=== PATIENT | female | born 1960 | race Caucasian/White ===

== ENCOUNTER → 2021-09-09 16:30 | Outpatient (CLI) | payer OTHER, SELFPAY | PROVIDERS: Visit Provider Obstetrics & Gynecology | DX: Z11.3 Encounter for screening for infections with a predominantly sexual mode of transmission (principal); N76.89 Other specified inflammation of vagina and vulva ==

== ENCOUNTER 2022-10-19 09:25 | Emergency (ER) | payer OTHER, SELFPAY ==
[2022-10-19 09:27] VITALS: BP 147/85; PULSE 73; RESP 16; TEMP 36.4; O2SAT 100; BMI 24.2
--- NOTE | 2022-10-19 09:44 | RAD_ITS ---
STUDY: X-RAY - LEFT WRIST REASON FOR EXAM: Female, 62 years old. Left wrist pain following a fall. TECHNIQUE: 3 view(s) of the wrist were obtained. COMPARISON: None. FINDINGS: Normal visualized distal radius and ulna. Normal radiocarpal articulation. Normal distal radioulnar articulation. Avulsion fracture of the triquetrum. Normal carpal articulations. Normal carpometacarpal articulation of the thumb. Normal second through fifth carpometacarpal articulations. Normal visualized metacarpal bones. Dorsal soft tissue swelling. RAD/Wrist min 3 Views IMPRESSION: Avulsion fracture of the triquetrum with evidence of overlying soft tissue swelling. Electronically Signed: Anshul Inman MD at 10:34 EST ,
--- NOTE | 2022-10-19 09:50 | EX.ED.UPPERE ---
HPI History of Present Illness HPI Narrative: 62-year-old female fell last night slipped on ice injuring her left wrist. She is right-hand dominant. She has had a prior fracture wrist 20 or 30 years ago. It did not need surgery at that time. Chief Complaint: Upper Extremity Injury Informant: patient Occured/Mechanism Mechanism/Context: Yes injury and Yes blunt trauma Onset/Context/Timing Onset: Yesterday Timing: Continuous Quality of Pain: Sharp and Stabbing Current Severity: Moderate Maximum Severity: Moderate Associated Symptoms Associated Symptoms: Negative for Parasthesia, Weakness or Loss of Funtion Narrative Narrative: 62-year-old female slipped on ice last night in [place] fell injuring her left wrist. No LOC. Prior similar symptoms: Yes Recent Illness/Hospitalization: No PFSH PFSH Medical History no medical history Allergy/AdvReac Type Severity Reaction Status Date / Time No Known Allergies Allergy Verified 10/19/22 09:28 Family History no significant family his Surgical History no surgical history Social History Smoking Status: Current every day smoker tobacco type: cigarettes ROS ROS ED ROS Narrative Denies recent illness. Review of Systems ROS Unobtainable: Denies due to encephalopathy Constitutional Constitutional ED: Denies chills or fever(s) Eyes Eyes: Denies blurry vision ENT ENT ED: Denies ear pain Cardiovascular Cardiovascular: Denies chest pain Respiratory/Chest Respiratory/Chest: Denies cough or dyspnea Gastrointestinal Gastrointestinal: Denies abdominal pain Genitourinary Genitourinary ED: Denies dysuria or hematuria Musculoskeletal Musculoskeletal: Denies back pain Integumentary Denies abscess or Abrasions Neurologic Neurologic: Denies headache(s) Psychiatric Psychiatric: Denies anxiety Endocrine Endocrinology: Denies cold intolerance Hematologic/Lymphatic Hematologic/Lymphatic: Denies easy bleeding or easy bruising Allergic/Immunologic Allergic/Immunologic ED: Denies mouth swelling or tongue swelling EXAM Physical Exam Narrative Exam Narrative: 62-year-old female no acute distress. Vital signs stable afebrile. H EENT exam pupils round reactive light. No signs of facial trauma. No laceration or significant hematoma to her scalp. Mild tenderness left posterior scalp but no significant swelling. C-spine nontender full range of motion. Trachea midline. Back nontender. Spine nontender. No signs of trauma to the back. Lungs are clear equal symmetrical bilaterally. Chest wall is nontender. Ribs are nontender. Heart regular rate and rhythm rate about 70 no murmur. Abdomen soft nontender. Pelvic girdle intact. Moving all 4 extremities. Her left wrist is swollen and tender consistent with a wrist fracture. Normal radial pulse. She is able to wiggle her fingers. Normal touch sensation and cap refill. Left proximal forearm elbow upper arm and shoulder are nontender. Normal range of motion. Right upper extremity nontender normal range of motion and bilingual office assistant strength. Both lower extremities are nontender. Normal range of motion. Neurologically she is awake and alert with no focal motor deficits. Const Vital Signs: 10/19/22 09:27 Temperature 97.6 F L Temperature Source Temporal Pulse Rate 73 Respiratory Rate 16 Blood Pressure 147/85 H Blood Pressure Mean 105 Pulse Ox 100 Oxygen Delivery Method Room Air Positive well nourished and well developed; Negative for obese, cachectic, contractures or unkempt General Appearance ED: well developed and NAD; Negative for unkempt, cachectic, contractures, cyanotic or diaphoretic Nutritional Appearance: Negative for cachectic or obese HEENT Reports moist mucous membranes HEENT Narrative: Left posterior scalp tenderness. No Sinay hematoma. No laceration normocephalic, trauma and tenderness; Negative for atraumatic Eyes PERRL and EOMs intact bilaterally General Eye ED: Negative for other Neck full ROM and supple General: Negative for tenderness Lymph Lymphatic: Negative for other Chest Wall inspection of chest normal and palpation of chest normal Chest: Negative for other Resp normal respiratory effort and clear to auscultation bilaterally Effort and Inspection: Negative for pain with movement Auscultation: Negative for rales, rhonchi or wheezes Cardio regular rate, regular rhythm, S1 normal heart sound, S2 normal heart sound and no murmurs Rate: Negative for bradycardia or tachycardic Rhythm: Negative for abnormal rhythm GI non-tender, non-distended and no masses Inspection: Negative for abdominal distention Auscultation: normoactive bowel sounds Palpation: soft; Negative for tender or guarding Bladder / Kidney Exam: No other Back/Spine no CVA tenderness General Back: Negative for CVA tenderness Cervical Spine: Negative for cervical spine tenderness Thoracic Spine / Upper Back: Negative for thoracic spinal tenderness Lumbar Spine / Lower Back: Negative for lumbar spinal tenderness Extremity normal to inspection and full ROM Extremity Narrative: Except left wrist tender, swollen decreased range of motion consistent with a left wrist fracture. Neuro oriented x3, CN's II-XII intact bilaterally, moves all extremities, no focal motor deficits and no sensory deficits noted Sensorium / Orientation: alert, oriented to person, oriented to place and oriented to time; Negative for orientation impaired, lethargic or stuporous Motor Exam: strength 5/5 throughout Psych mental status grossly normal Appearance: Negative for unkempt Attitude: No agitated Mood & Affect: Negative for depressed, anxious or tearful Skin General Skin Exam: Negative for petechiae Lesions: no lesions Rashes: no rashes Trauma: no lacerations or abrasions; Negative for abrasion or laceration MDM MDM MDM Narrative Medical decision making narrative: 62-year-old slipped and fell on the ice last night clinically has not fractured wrist. X-ray will be obtained. To be given ibuprofen for pain she did not want a narcotic pain pill. I suspect this is fractured and will need splinted. Repeat exam patient doing well at 11:20 AM. I went over her x-rays with her and explained to her the triquetrium fracture. She was placed in a well-padded, Ortho-Glass AP splint that I fabricated. She tolerated that well. She will be discharged home with orthopedic follow-up with Dr. David Jimenes. Radiography Diagnostic Testing: Left wrist x-ray, 3 views, interpreted by myself and radiologist shows a posterior triquetrium fracture of the carpal bones of the wrist. The distal radius and ulna are unremarkable on this film. I did go over the x-rays with the patient. Procedures Upper Extremity Splints Upper Extremity Splint: Orthoglass and Sling Splint Fabrication: Fabricated Location: Left Discharge Plan Triage Chief Complaint: Upper Extremity Injury ED Provider: Zoltan Browning Dx/Rx/DC Orders Clinical Impression: Fall, Closed fracture of left carpal bone Instructions: ED Fracture, Wrist, General Primary Care Provider: Joaquina Joyner NP Referrals: David Jimenes MD [Med Staff - Active Staff] - As soon as possible Joaquina Joyner NP, [employer] [Primary Care Provider] - Activity Restrictions/Additional Instructions: Broken bone in your left wrist called the triquetrium. Ice and elevate to decrease pain and swelling. Motrin and Tylenol for pain and swelling. Call the orthopedic doctors office, Dr. David Jimenes, of [facility] to be seen in follow-up. Keep the splint dry and clean. Disposition Disposition: Home, Self Care
[2022-10-19] MEDS: Ibuprofen 600 MG Tablet PO (10:27)
== END 2022-10-19 11:50 | disposition home or self-care (01) ==
PROVIDERS: Emergency Provider Emergency Medicine; PCP Nurse Practitioner Family; Visit Provider Emergency Medicine
DX: S62.115A Nondisplaced fracture of triquetrum [cuneiform] bone, left wrist, initial encounter for closed fracture (principal); W00.0XXA Fall on same level due to ice and snow, initial encounter; F17.210 Nicotine dependence, cigarettes, uncomplicated
CPT/HCPCS: 29126; 29125; 73110; 99283

== ENCOUNTER → 2023-01-07 | Outpatient (CLI) | payer OTHER, SELFPAY ==
--- NOTE | 2023-01-07 07:18 | BI_ITS ---
MAMMOGRAPHY - BILATERAL SCREENING 3-D TOMOSYNTHESIS REASON FOR EXAM: Female, 62 years old. Routine screening PERTINENT HISTORY: No significant family history. TECHNIQUE: 2-D mammograms and 3-D Tomosynthesis of the breast (s) were performed. CAD was performed. COMPARISON: 2019 FINDINGS: The breast composition is heterogeneously dense that can obscure small breast masses. Scattered benign calcifications are seen. No dense spiculated masses or suspicious microcalcifications are identified. No architectural distortion is identified. There is no skin thickening or retraction. There has been no significant change since the prior study. BI/SCRN MAMM (CAD)W/KWAME BILAT IMPRESSION: No mammographic signs of malignancy. Routine yearly mammograms recommended. ASSESSMENT CATEGORY: BIRADS Category 2: Benign. A letter regarding these results will be sent to the patient by the facility within 30 days. FOLLOW UP RECOMMENDATION: Yearly follow up mammogram recommended. (A) Approximately 10% of breast cancers are not detected by mammography. A normal mammogram should not delay biopsy of a clinically suspicious abnormality. Electronically Signed: Sushil Boyce MD at 8:08 EDT ,
== END | disposition home or self-care (01) ==
LOC: OPBD 07:16
PROVIDERS: PCP Nurse Practitioner Family; Referring Provider Student in an Organized Health Care Education/Training Program; Visit Provider Student in an Organized Health Care Education/Training Program
DX: Z12.31 Encounter for screening mammogram for malignant neoplasm of breast (principal)
CPT/HCPCS: 77063; 77067

== ENCOUNTER 2023-03-31 07:58 | Day surgery (SDC) | payer OTHER, SELFPAY ==
[2023-03-31] VITALS (7 sets, daily range): BP systolic 83–122; BP diastolic 53–79; PULSE 50–60; RESP 16–18; TEMP 36.1–36.5; O2SAT 95–99; BMI 21.9
[2023-03-31] MEDS: Lactated Ringers 1,000 ML 15 ML IV (08:29)
--- NOTE | 2023-03-31 08:50 | HP.PCM_ITS ---
[facility] - General General Date of Admission: 03/31/23 Date of Service: 03/31/23 Chief Complaint: Screening colonoscopy HPI Narrative PETRA GARCIA, is a 62 F who presents today for screening colonoscopy. She had a colonoscopy approximately 12 years ago. The colonoscopy was normal. She does not have any problems with the bowels. She does not have any nausea, vomiting or diarrhea. She denies any blood per rectum. Overall she is in very good health. [facility] Medical History (Updated 03/30/23 @ 14:23 by Bianca Ledesma) Cancer Dermatofibrosarcoma Heartburn High cholesterol History of stress test Malignant melanoma Non-smoker Wears glasses Home Medications sertraline 25 mg tablet 12.5 mg PO DAILY 01/05/23 [History Last Taken Unknown] simvastatin 10 mg tablet 40 mg PO DAILY 01/05/23 [History Last Taken Unknown] Allergy/AdvReac Type Severity Reaction Status Date / Time No Known Allergies Allergy Verified 03/30/23 14:14 Surgical History History of colonoscopy Social History (Updated 01/05/23 @ 10:50 by Padmini Hernandez) current occupational status: employed Smoking Status: Never smoker ROS Review of Systems ROS Unobtainable: other Constitutional Constitutional: Denies fatigue, fever(s), poor appetite, weight gain or weight loss ENT HEENT: Denies mouth lesions Cardiovascular Cardiovascular: Denies abdominal bloating, abdominal edema or abdominal pain Respiratory/Chest Respiratory/Chest: Denies change in mental status, change in phlegm color, chest congestion or chest tightness Gastrointestinal Gastrointestinal: Denies belching, bloating, change in bowel habits, change in stool character, chewing difficulty, coffee ground emesis, constipation, cramping, diarrhea, dyspepsia, dysphagia, early satiety, excessive flatus, fecal incontinence, heartburn, hematemesis, hematochezia, hemorrhoids, loose stools, melena, nausea, odynophagia, rectal bleeding, tenesmus, vomiting or weight changes Genitourinary Genitourinary: Denies abdominal discomfort, burning urination or itching Musculoskeletal Musculoskeletal: Reports as per HPI; Denies muscle weakness or myalgias Integumentary Integumentary: Denies jaundice Neurologic Neurologic: Denies lack of coordination or weakness Psychiatric Psychiatric: Denies confusion, depression, memory loss, mood swings, paranoia or suicidal ideation Endocrine Endocrinology: Denies systems reviewed and no addt'l complaints, except as documented Hematologic/Lymphatic Hematologic/Lymphatic: Denies anemia, easy bleeding, easy bruising or lymphadenopathy Allergic/Immunologic Allergic/Immunologic: Denies systems reviewed and no addt'l complaints, except as documented Vital Signs Vital Signs Vital Signs: 03/31/23 08:30 03/31/23 08:30 Temperature 97.7 F L Temperature Source Temporal Pulse Rate 60 Respiratory Rate 18 Respiratory Pattern Normal Blood Pressure 122/79 H Blood Pressure Mean 93 Blood Pressure Source Monitor Blood Pressure Position Semi-Fowlers Blood Pressure Location Right Arm Pulse Ox 96 Oxygen Delivery Method Room Air Weight Weight: 136 lb 3.2 oz Body Mass Index (BMI) 21.9 Physical Exam Const alert, oriented x3, no apparent distress, healthy appearing and well nourished General Appearance: cooperative, comfortable, well kempt and well developed Orientation / Consciousness: awake and oriented to person HEENT Head and Scalp: normocephalic and atraumatic Face and Sinus: normal facial exam Mouth: oral and palatal mucosa normal Eyes General Eye: normal appearance of both eyes Neck full ROM Lymph Lymphatic: no lymphadenopathy noted Chest inspection of chest normal Resp normal respiratory effort and no use of accessory muscles Cardio regular rate and regular rhythm GI normal to inspection, nondistended, normoactive bowel sounds, soft to palpation, non-tender, non-distended and no masses Auscultation: normoactive bowel sounds Palpation: soft Percussion: normal to percussion Rectal Exam: visual inspection normal and normal sphincter tone no CVA tenderness Back/Spine no CVA tenderness and normal ROM Extremity normal to inspection Peripheral Pulses: Yes pulses 2+ throughout Skin no rashes or lesions noted General Skin Exam: no breakdown, elasticity normal and turgor normal Neuro oriented x3 Motor Exam: strength 5/5 throughout Psych mental status grossly normal Appearance: grossly normal Attitude: calm Activity / Motor Behavior: appropriate eye contact Speech: normal speech Thought Process: normal thought process Thought Content: normal thought content Attention / Concentration: attention grossly intact Memory / Cognition: memory grossly intact Insight: insight good Judgement: judgement good Assessment & Plan Assessment/Plan (1) Encounter for screening for malignant neoplasm of colon: PLAN: She was explained alternatives, risk, benefits including not withstanding bleeding, infection, sepsis, perforation, need for emergent surgery . She will have an ASA of 2.
--- NOTE | 2023-03-31 09:21 | OP.CCLET_ITS ---
03/31/2023 Kori Michele Re : Colonoscopy procedure for Oscar Denson Dear Anya This procedure was performed on March. My impressions and recommendations are as follows: Impressions : - The entire examined colon is normal. - No specimens collected. Recommendations : - Discharge patient to home. - Resume previous diet. - Continue present medications. - Repeat colonoscopy in 10 years for surveillance. My findings are described in the full procedure note, which is enclosed. If I can be of further assistance, please feel free to contact me at . Sincerely, Bruce Garcia, 03/31/2023 9:21:21 AM This report has been signed electronically.
--- NOTE | 2023-03-31 09:21 | OP.COLON_ITS ---
Patient Name: Oscar Denson Procedure Date: 03/31/2023 8:49 AM Date of : 1960 Age: 62 Procedure: Colonoscopy Indications: Screening for colorectal malignant neoplasm Providers: Bruce Garcia DO Referring MD: Kori Michele Medicines: Monitored Anesthesia Care Patient Profile: This is a 62 year old female. Refer to note in patient chart for documentation of history and physical. Last Colonoscopy: more than 10 years ago. Complications: No immediate complications. Procedure: Pre-Anesthesia Assessment: - Prior to the procedure, a History and Physical was performed, and patient medications and allergies were reviewed. The risks and benefits of the procedure and the sedation options and risks were discussed with the patient. All questions were answered and informed consent was obtained. Patient identification and proposed procedure were verified by the physician in the pre-procedure area. Mental Status Examination: alert and oriented. Airway Examination: normal oropharyngeal airway and neck mobility. Respiratory Examination: clear to auscultation. CV Examination: normal. Prophylactic Antibiotics: The patient does not require prophylactic antibiotics. Prior Anticoagulants: The patient has taken no previous anticoagulant or antiplatelet agents. ASA Grade Assessment: II - A patient with mild systemic disease. After reviewing the risks and benefits, the patient was deemed in satisfactory condition to undergo the procedure. The anesthesia plan was to use monitored anesthesia care (MAC). Immediately prior to administration of medications, the patient was re-assessed for adequacy to receive sedatives. The heart rate, respiratory rate, oxygen saturations, blood pressure, adequacy of pulmonary ventilation, and response to care were monitored throughout the procedure. The physical status of the patient was re-assessed after the procedure. After I obtained informed consent, the scope was passed under direct vision. Throughout the procedure, the patient's blood pressure, pulse, and oxygen saturations were monitored continuously. The was introduced through the anus and advanced to the cecum, identified by appendiceal orifice and ileocecal valve. The colonoscopy was performed without difficulty. The patient tolerated the procedure well. The quality of the bowel preparation was good. Scope In: 9:02:37 AM Scope Withdrawal Time 0 hours 8 minutes 52 seconds Scope Out: 9:18:06 AM Total Procedure Duration Time 0 hours 15 minutes 29 seconds Findings: The perianal and digital rectal examinations were normal. Pertinent negatives include normal sphincter tone. The colon (entire examined portion) appeared normal. Impression: - The entire examined colon is normal. - No specimens collected. Recommendation: - Discharge patient to home. - Resume previous diet. - Continue present medications. - Repeat colonoscopy in 10 years for surveillance. Procedure Code(s): --- Professional --- G0121, Colorectal cancer screening; colonoscopy on individual not meeting criteria for high risk CPT copyright 2017 [employer]. All rights reserved. The codes documented in this report are preliminary and upon shape carver review may be revised to meet current compliance requirements. Bruce Garcia DO 03/31/2023 9:21:21 AM This report has been signed electronically. Number of Addenda: 0 Note Initiated On: 03/31/2023 8:49 AM
== END 2023-03-31 10:26 | disposition home or self-care (01) ==
LOC: EN 07:59 → AC 08:00
PROVIDERS: PCP Nurse Practitioner Family; Referring Provider Nurse Practitioner Family; Visit Provider Internal Medicine Gastroenterology
PROC: 0DJD8ZZ Inspection of Lower Intestinal Tract, Via Natural or Artificial Opening Endoscopic (ICD-10-PCS; CPT 45378; principal; 2023-03-31 08:55)
DX: Z12.11 Encounter for screening for malignant neoplasm of colon (principal); E78.00 Pure hypercholesterolemia, unspecified
CPT/HCPCS: G0121; J7120; J2405

== ENCOUNTER → 2023-07-06 | Outpatient (CLI) | payer OTHER, SELFPAY ==
--- NOTE | 2023-07-06 16:10 | RAD_ITS ---
INDICATION: Hallux rigidus EXAMINATION/TECHNIQUE: X-RAY - RIGHT XR Foot 3 VIEWS COMPARISON: FINDINGS: SOFT TISSUES: No soft tissue swelling or gas. No radiopaque foreign body. BONES/JOINTS: No acute fracture or subluxation.. Degenerative changes with prominent spurring at the first metatarsophalangeal articulation and joint space narrowing. There is a prominent spur protruding over the dorsum of the first metatarsal head. No sclerotic or destructive changes observed. RAD/Foot min 3 Views IMPRESSION: Degenerative changes with prominent spurring at the first metatarsophalangeal articulation and joint space narrowing .. Electronically Signed: Rodríguez Gonzalez DO at 17:59 EDT Reading Location ID and State: [facility] / [place] Tel [phone], Service support ,
== END | disposition home or self-care (01) ==
PROVIDERS: PCP Nurse Practitioner Family; Referring Provider Podiatrist; Visit Provider Podiatrist
DX: M20.21 Hallux rigidus, right foot (principal)
CPT/HCPCS: 73630

== ENCOUNTER 2023-08-22 16:40 | Emergency (ER) | payer OTHER, SELFPAY ==
[2023-08-22 16:42] VITALS: BP 139/87; PULSE 64; RESP 18; TEMP 36.4; O2SAT 100; BMI 23.7
--- NOTE | 2023-08-22 17:15 | RAD_ITS ---
STUDY: X-RAY - RIGHT HAND REASON FOR EXAM: Female, 63 years old. pain TECHNIQUE: 3 view(s) of the hand. COMPARISON: None. FINDINGS: Normal radiocarpal articulation. Normal distal radioulnar joint. Normal visualized carpal bones. Normal carpal articulations Normal carpometacarpal articulation of the thumb. Normal second through fifth carpometacarpal joints. Normal metacarpi. Normal metacarpophalangeal joint of the thumb. Normal interphalangeal joint of the thumb. Normal proximal and distal phalanges of the thumb. Normal metacarpophalangeal joints of the second through fifth fingers. Normal proximal and distal interphalangeal joints of the second through fifth fingers. Normal phalanges of the second through fifth fingers. The soft tissue structures are unremarkable. RAD/Hand Min 3 Views IMPRESSION: Normal x-ray examination of the hand. Electronically Signed: Ish Aguilera MD at 17:51 EST ,
--- NOTE | 2023-08-22 17:49 | EDS_ITS ---
HPI <GENA Lynne - Last Filed: 08/22/23 17:52> History of Present Illness Chief Complaint: Upper Extremity Injury Narrative Narrative: Patient is a 63-year-old female with no significant ankle history presents to the emergency department with complaints of right hand pain. Patient states that 3 days ago, she was out of town, she tripped over her scarf bracing herself with her right hand injuring the right hand. Patient states it continued to hurt, and she is here for evaluation. She denies any wrist injury, denies any other injury [facility] <GENA Lynne - Last Filed: 08/22/23 17:52> [facility] Medical History (Updated 08/22/23 @ 17:52 by GENA Lynne) Cancer Dermatofibrosarcoma Heartburn High cholesterol History of stress test Malignant melanoma Non-smoker Wears glasses Home Medications sertraline 25 mg tablet 12.5 mg PO DAILY 01/05/23 [History Last Taken Unknown] simvastatin 10 mg tablet 40 mg PO DAILY 01/05/23 [History Last Taken Unknown] Allergy/AdvReac Type Severity Reaction Status Date / Time No Known Allergies Allergy Verified 08/22/23 16:42 Surgical History History of colonoscopy Social History (Updated 01/05/23 @ 10:50 by Padmini Hernandez) current occupational status: employed Smoking Status: Never smoker ROS <GENA Lynne - Last Filed: 08/22/23 17:52> ROS ED ROS Narrative Constitutional: Negative for fever, chills, weight loss, weakness Eyes: Negative for vision loss, vision change, double vision ENT: Negative for any sore throat, ear pain, congestion Cardiovascular: Negative for any chest pain, tightness, palpitations Respiratory: Negative for any cough, sputum production, hemoptysis, dyspnea, dyspnea on exertion, orthopnea Gastrointestinal: Negative for any abdominal pain, nausea, vomiting, diarrhea, constipation, blood in stool, blood in vomit : Negative for any urinary frequency, dysuria, retention, blood in urine. Muscle skeletal: Negative for any myalgias, arthralgias, neck pain, back pain. Positive for right hand pain Neurological: Negative for any headache, syncope, numbness or tingling, dizziness Skin: Negative for any rashes, lumps, itching, abrasions, lacerations Psychiatric: Negative for any depression, anxiety, stress, suicidal ideation, homicidal ideation Hematologic: Negative for any easy bruising, excessive bruising, easy bleeding Allergies: Negative for any eczema, hives, rash EXAM <GENA Lynne - Last Filed: 08/22/23 17:52> Physical Exam Narrative Exam Narrative: Vital signs reviewed. Extremities: No peripheral edema, no signs of gross trauma or deformity. Active full range of motion of all extremities. Full range of motion of the digits of the right hand. +2 radial pulse. Patient has pain along the second third metacarpals, no deformity, there is no significant ecchymosis, edema. Full range of motion. Neuro: Cranial nerves II through XII intact, no focal neurological deficits. Skin: Clean dry and intact with no rash, purpura, petechiae, vesicles or pustules. Backs/flank: No CVA tenderness, no midline spinal tenderness, no deformity. Psych: Normal mood and affect. No SI, HI or acute psychosis. Const Vital Signs: 08/22/23 16:42 Temperature 97.6 F L Temperature Source Temporal Pulse Rate 64 Respiratory Rate 18 Blood Pressure 139/87 H Blood Pressure Mean 104 Pulse Ox 100 Oxygen Delivery Method Room Air MDM <GENA Lynne - Last Filed: 08/22/23 17:52> [facility] Treatment and Re-Evaluation Narrative: Patient appears generally well, patient appears nontoxic, vital signs are stable. Presenting to the emergency department complaints of right hand pain after mechanical fall. Differential diagnose includes hand contusion, hand strain, fracture metacarpal. 3 view x-rays completed, inter by ER physician shows no acute process. Patient will be diagnosed with hand strain, hand contusion. She will take ibuprofen, Tylenol, ice and elevate. All questions answered stable for discharge. <Dr. Zoltan Browning MD - Last Filed: 08/22/23 17:57> [facility] Narrative Medical decision making narrative: I have personally performed a face to face assessment of the patient and have reviewed the EBER Note. I performed a substantive portion of the visit including all aspects of the following. My clarke findings include: History is 63-year-old female tripped on steps landing awkwardly on her right hand. Complaining of pain of the dorsum of the right hand. [id number]. No other injuries. Did not hit her head. Exam is [physical exam vital signs stable afebrile. Patient no distress. HEENT exam unremarkable atraumatic. Neck nontender. Back nontender. Lungs clear. Heart regular rhythm. Chest wall and ribs nontender. Abdomen soft nontender. Left upper and both lower extremities are nontender with normal range of motion. Right hand dorsum and has mild tenderness in the webspace between the right thumb and index finger and on the dorsum. No deformity. Minimal swelling. Full flexion extension. Wrist nontender. Full flexion extension. Forearm and elbow nontender.] Medical Decision Making [x-ray of the right hand 3 views interpreted by showed no acute abnormality. No fracture. Treated as a wrist sprain/contusion. Ice and elevate. Motrin. Follow-up if not improving.] Other additions or changes: [None] History & Record Review Discussion w/independent historian: Patient Radiography Diagnostic Testing: Right hand x-ray, 3 views, interpreted by myself shows no acute abnormality. No fracture. No dislocation. Discharge Plan Triage Chief Complaint: Upper Extremity Injury ED Midlevel Provider: Guzman Lucas ED Provider: Zoltan Bronwing Dx/Rx/DC Orders Clinical Impression: Contusion of hand, Fall Instructions: ED Hand Contusion Prescriptions: No Action simvastatin 10 mg tablet 40 mg PO DAILY sertraline 25 mg tablet 12.5 mg PO DAILY Primary Care Provider: Joaquina Joyner NP Referrals: Joaquina Joyner NP, [facility] [Primary Care Provider] - Activity Restrictions/Additional Instructions: Please ensure that you ice and elevate. Take ibuprofen, Tylenol Disposition Disposition: Home, Self Care
== END 2023-08-22 18:03 | disposition home or self-care (01) ==
PROVIDERS: Emergency Provider Emergency Medicine; PCP Nurse Practitioner Family; Visit Provider Emergency Medicine
DX: S60.221A Contusion of right hand, initial encounter (principal); E78.00 Pure hypercholesterolemia, unspecified; W22.8XXA Striking against or struck by other objects, initial encounter; Z79.899 Other long term (current) drug therapy; Z85.9 Personal history of malignant neoplasm, unspecified
CPT/HCPCS: 73130; 99282

== ENCOUNTER → 2024-02-16 | Outpatient (CLI) | payer OTHER, SELFPAY ==
--- NOTE | 2024-02-16 15:55 | BI_ITS ---
MAMMOGRAPHY - BILATERAL SCREENING 3-D TOMOSYNTHESIS REASON FOR EXAM: Female, 63 years old. SCREENING PERTINENT HISTORY: No significant family history. TECHNIQUE: 2-D mammograms and 3-D Tomosynthesis of the breast (s) were performed. CAD was performed. COMPARISON: 01/07/2023 FINDINGS: The breast composition is heterogeneously dense that can obscure small breast masses. Scattered benign calcifications are seen. No dense spiculated masses or suspicious microcalcifications are identified. No architectural distortion is identified. There is no skin thickening or retraction. There has been no significant change since the prior study. BI/SCRN MAMM (CAD)W/KWAME BILAT IMPRESSION: No mammographic signs of malignancy. Routine yearly mammograms recommended. ASSESSMENT CATEGORY: BIRADS Category 1: Negative. A letter regarding these results will be sent to the patient by the facility within 30 days. FOLLOW UP RECOMMENDATION: Yearly follow up mammogram recommended. (A) Approximately 10% of breast cancers are not detected by mammography. A normal mammogram should not delay biopsy of a clinically suspicious abnormality. Electronically Signed: Chang Hernandez MD at 17:43 EDT ,
== END | disposition home or self-care (01) ==
LOC: OPBI 15:54
PROVIDERS: PCP Nurse Practitioner Family; Referring Provider Nurse Practitioner Family; Visit Provider Nurse Practitioner Family
DX: Z12.31 Encounter for screening mammogram for malignant neoplasm of breast (principal)
CPT/HCPCS: 77063; 77067

== ENCOUNTER → 2024-03-02 | Outpatient (CLI) | payer OTHER, SELFPAY ==
--- NOTE | 2024-03-02 16:23 | US_ITS ---
INDICATION: PELVIC FULLNESS IN FEMALE EXAMINATION: Ultrasound US Pelvis Non-OB Complete TECHNIQUE: Transabdominal pelvic ultrasound was performed. Grayscale, spectral waveform, and color flow Doppler evaluation of the adnexa. COMPARISON: No relevant prior comparison study available FINDINGS: UTERUS: Absent. Status post hysterectomy. RIGHT OVARY: Not visualized. LEFT OVARY: Not visualized. FREE FLUID: None. BLADDER: The calculated prevoid bladder volume is 160 cc. US/Pelvic (Non ) IMPRESSION: 1. Status post hysterectomy. 2. Nonvisualization both ovaries. 3. No pelvic mass is seen. Electronically Signed: Nicko Wilson MD at 15:06 EDT ,
== END | disposition home or self-care (01) ==
LOC: US 16:19
PROVIDERS: PCP Nurse Practitioner Family; Referring Provider Family Medicine; Visit Provider Family Medicine
DX: R31.0 Gross hematuria (principal)
CPT/HCPCS: 76856

== ENCOUNTER → 2025-03-04 | Outpatient (CLI) | payer OTHER, SELFPAY ==
--- NOTE | 2025-03-04 16:00 | BI_ITS ---
EXAM: SCRN MAMM (CAD)W/KWAME BILAT DATE: 03/04/2025 CLINICAL HISTORY: F, Age 64 y/o , SCREEN BREAST CANCER RISK ASSESSMENT: Na TECHNIQUE: Bilateral screening digital breast tomosynthesis with 2D and 3D images. Computer aided detection. COMPARISON: Prior exam(s) were compared FINDINGS: TISSUE DENSITY: The breast tissue is heterogenously dense, which may obscure small masses. Bilateral Breast Mammographic Findings: No suspicious masses, calcifications or other abnormalities are identified. BI/SCRN MAMM (CAD)W/KWAME BILAT IMPRESSION: OVERALL FINAL ASSESSMENT: BIRADS 1 NEGATIVE RECOMMENDATION: Routine annual follow-up in 1 Year A letter with findings and recommendations will be mailed to the patient. Reading Location: [id number]
== END | disposition home or self-care (01) ==
PROVIDERS: PCP Nurse Practitioner Family; Referring Provider Nurse Practitioner Family; Visit Provider Nurse Practitioner Family
DX: Z12.31 Encounter for screening mammogram for malignant neoplasm of breast (principal)
CPT/HCPCS: 77063; 77067